=== PATIENT | male | born 1990 ===

== ENCOUNTER 2019-11-01 09:01 | Inpatient (IN) | payer MEDICAID ==
[~2019-11-01] VITALS: Ht 172.7 cm; Wt 108.5 kg
--- NOTE | 2019-11-01 09:24 | NUR ---
0859. 29 YR OLD MALE ARRIVED VIA EMS FROM [facility]. PER REPORT PT WITH KNOWN SEIZURE HX. HAS BEEN OUT OF KEPPRA FOR 5 DAYS, HAS HX OF "HEAVY ETOH" USE. WAS QUESTIONABLE HAVING A SEIZURE AND WAS IN STATUS. WHEN PT QUIT SEIZING, WENT INTO [facility] ARREST. RECEIVED 2 ROUNDS OF EPI IN REPORT PT ASPIRATED. DURING FLIGHT DIFFICULTY WITH VENTILATING PT, RR WOULD INCREASE TO 40'S AND PT SATS WOULD DECREASE. PT WOULD HAVE GUPY BREATHING. PT ONLY PURPOSEFUL MOVEMENT HAS BEEN GUPY BREATHING. PT RECEIVED 70MG OF ROCURONIUM AND 3 DOSES OF 70 MG OF KETAMINE INJECTION MOLDING TECHNICIAN, LAST DOSE AT 0830. PT ARRIVES WITH 8.0 ETT 22 AT LIP. 2 PIV IV, I/0 IN RIGHT TIBIA. NG ?14F IN RIGHT NARE. 2ND LITER OF NS INFUSING. DR PACK AT BEDSIDE. PT PLACED ON MONITORS, VENTILATOR AC 16 TV 550 PEEP 8 100% FIO2. Addendum: 11/01/19 at 1043 by OMAR PT RECEIVED AT [facility], KEPPRA 1000MG, ZOSYN, SOLUMEDROL, 10-12 ROUNDS OF ALBUTEROL. PER PTS MOTHER SEIZURE BEGAN APPROX 0200.
[2019-11-01] MEDS ORDERED: PROPOFOL 100 ML IV ONE (09:26)
--- NOTE | 2019-11-01 09:27 | NUR ---
DR PACK SPOKE WITH DR ABACRA
[2019-11-01] MEDS ORDERED: PANTOPRAZOLE 40 MG IV IVPush SCH (09:30)
[2019-11-01] MEDS ORDERED: PROPOFOL 100 ML IV PRN ×3 (09:30→20:30)
[2019-11-01] MEDS ORDERED: LEVETIRACETAM 100 MG/ML, 5ML IV ONE (09:30)
[2019-11-01] MEDS ORDERED: PLEASE ENTER HEIGHT AND WEIGHT MC SCH (09:30)
[2019-11-01] MEDS ORDERED: PANTOPRAZOLE 40 MG IV ONE ×2 (09:42→10:28)
[2019-11-01] MEDS ORDERED: LEVE100020 PO (09:58)
[2019-11-01] MEDS ORDERED: SODIUM CHLORIDE 0.9% 1,000 ML IV ONE ×2 (10:00)
--- NOTE | 2019-11-01 10:03 | NUR ---
DENNIS RT AT BEDSIDE, VENT SETTINGS CHANGED TO AC 14. PER DR PACK, HOLD POTASSIUM REPLACEMENT UNTIL AFTER POTASSIUM RESULTED. PER REPORT PT HAD K LEVEL OF 2.0, MEDICATION WAS LEFT AT [facility] AND NOT REPLACED. . PT ST PER MONITOR, PTS MOTHER JULIO CESAR AT BEDSIDE. QUESTIONS ANSWERED, UPDATED ON POC.
[2019-11-01 10:05] LABS: ALANINE AMINOTRANSFERASE 22 U/L (12-78); ALBUMIN 0.9 g/dL (3.4-5.0); ANION GAP 16 mmol/L (5-15); CHLORIDE 78 mmol/L (98-107); CREATININE 0.73 mg/dL (0.7-1.3)
[2019-11-01 10:07] LABS: ALKALINE PHOSPHATASE 361 U/L (45-117); BILIRUBIN,TOTAL 7.7 mg/dL (0.2-1.0); TOTAL PROTEIN 5.2 g/dL (6.4-8.2)
[2019-11-01 10:08] LABS: CALCIUM 5.9 mg/dL (8.5-10.1)
[2019-11-01 10:09] LABS: MEAN CORPUSCULAR HEMOGLOBIN 33.7 pg (27.5-34.5); MEAN CORPUSCULAR HGB CONC 33.7 g/dL (33.2-36.2); MEAN CORPUSCULAR VOLUME 100.1 fL (81-97); MEAN PLATELET VOLUME 7.9 fL (7.4-10.4); PLATELET COUNT 155 x10^3/uL (130-400); RED BLOOD COUNT 2.26 x10^6/uL (4.38-5.82); RED CELL DISTRIBUTION WIDTH 18.5 % (9.4-14.8)
[2019-11-01] MEDS ORDERED: PANTOPRAZOLE 80 MG in SODIUM CHLORIDE 0.9% 100 ML IV SCH (10:14)
[2019-11-01] MEDS ORDERED: OCTREOTIDE 500 MCG in SODIUM CHLORIDE 0.9% 249 ML IV PRN (10:14)
--- NOTE | 2019-11-01 10:14 | NUR ---
DR PACK AT BEDSIDE. NG CONTENTS CHECKED FOR BLOOD, PER MD, POSITIVE. WAS DISCUSSED WITH DR PACK, BLEEDING CONTRINDICATED FOR HYPOTHERMIA PROTOCOL. 2ND LITER OF NS THAT WAS INFUSING UPON PT ARRIVAL, COMPLETED AT 0950. NS AT 250MLS INFUSING. MEDICATIONS REQUESTED FROM PHARMACY.
--- NOTE | 2019-11-01 10:18 | NUR ---
DR SALES AT BEDSIDE TO CHANTELL PT
[2019-11-01 10:26] LABS: MD YES
[2019-11-01 10:29] LABS: BAND#(MANUAL) 2.98 x10^3/uL; BANDS%(MANUAL) 48 % (0-7); LYMPH#(MANUAL) 0.37 x10^3/uL (1-3.4); LYMPHS% (MANUAL) 6 % (22-44); METAMYELOCYTES# (MANUAL) 0.25 x10^3/uL (0-0); METAMYELOCYTES% (MANUAL) 4 % (0-1); MONOS#(MANUAL) 0.37 x10^3/uL (0.3-2.7); MONOS% (MANUAL) 6 % (2-9); SEG#(MANUAL) 2.23 x10^3/uL (1.8-6.8); SEGS% (MANUAL) 36 % (42-75)
[2019-11-01 10:30] LABS: ANISOCYTOSIS 1+; HYPOCHROMIA 1+; SICKLE CELLS 1+; STOMATOCYTES 1+
[2019-11-01] MEDS ORDERED: PANTOPRAZOLE 40 MG IV IVPush ONE (10:30)
[2019-11-01] MEDS ORDERED: POTASSIUM CHLORIDE 40 MEQ in SODIUM CHLORIDE 0.9% 500 ML IV ONE (10:30)
[2019-11-01] MEDS ORDERED: LEVETIRACETAM 500 MG in SODIUM CHLORIDE 0.9% 100 ML IV ONE (10:30)
[2019-11-01] MEDS ORDERED: OCTREOTIDE 100MCG/ML, 1ML (0.1MG/ML) IV ONE (10:30)
[2019-11-01 10:31] LABS: <PLATELET ESTIMATE> ADEQUATE; <PLT MORPHOLOGY> NORMAL PLT MORPH; PMNS WITH VACUOLES 1+
--- NOTE | 2019-11-01 10:45 | NUR ---
U/S TECH AT BEDSIDE.
[2019-11-01] MEDS: LEVETIRACETAM 1,000 MG in SODIUM CHLORIDE 0.9% 100 ML IV SCH ×2 (10:51→21:55)
--- NOTE | 2019-11-01 10:52 | NUR ---
KEPPRA NOT GIVEN, WAS DISCUSSED WITH DR PACK, PT RECEIVED KEPPRA 1000MG IN [facility]. NS 250MLS/HR, PROPOFOL AT 10 MCG/KG/MIN, NS WITH 40 KCL AT 130MLS/HR, OCTREOTIDE AND PROTONIX TO BE STARTED. NO CHANGE IN PT CONDITION NOTED. PT RECEIVED ZOSYN MODEL HOME SALES GREETER.
[2019-11-01 10:54] LABS: INTERNATIONAL NORMALIZED RATIO 1.61 (0.93-1.1); PROTHROMBIN TIME 16.6 Seconds (9.6-11.5)
[2019-11-01] MEDS ORDERED: VANCOMYCIN PER PHARMACY MC PRN (11:00)
--- NOTE | 2019-11-01 11:08 | NUR ---
REPORT CALLED TO MYRON AHUJA RN DISCUSSED, PT TO GO TO CT THEN BE TRANSPORTED TO ROOM. Addendum: 11/01/19 at 1217 by OMAR PT HAS HAD APPROX 150MLS BROWN FLUID FROM NG TUBE . PT HAD 450MLS URINE IN [place] BAG UPON RMOVAL OF ONE PLACE AT [facility]
[2019-11-01] MEDS ORDERED: OCTREOTIDE 100MCG/ML, 1ML (0.1MG/ML) ONE (11:12)
--- NOTE | 2019-11-01 11:14 | NUR ---
DR PACK SPOKE WITH DR ROMERO
[2019-11-01 11:30] LABS: TROPONIN I < 0.015 ng/mL (0.000-0.045)
[2019-11-01] MEDS ORDERED: OMNIPAQUE 350 MG/ML, 100ML BOTTLE ONE (11:35)
[2019-11-01] MEDS ORDERED: THIAMINE 200 MG in SODIUM CHLORIDE 0.9% 50 ML IV ONE (12:42)
[2019-11-01] MEDS ORDERED: PHARMACOKINETIC MONITORING MC PRN (13:00)
[2019-11-01] MEDS ORDERED: MAGNESIUM SULFATE PMX 2GM/50ML 50 ML IV ONE (13:30)
[2019-11-01] MEDS ORDERED: MIDAZOLAM 1 MG/ML, 2ML ONE (13:48)
[2019-11-01] MEDS ORDERED: MIDAZOLAM 1 MG/ML, 5ML IVPush ONE (14:00)
[2019-11-01] MEDS ORDERED: CALCIUM CHLORIDE 13.6 MEQ in SODIUM CHLORIDE 0.9% 50 ML IV ONE (14:00)
[2019-11-01] MEDS ORDERED: LIDOCAINE-MPF 1%, 2ML ONE (14:06)
[2019-11-01] MEDS ORDERED: NOREPINEPHRINE 1 MG/ML, 4ML ONE (14:30)
[2019-11-01] MEDS ORDERED: POTASSIUM CHLORIDE 20 MEQ, MAGNESIUM SULFATE 1 GM, FOLIC ACID 1 MG, THIAMINE 200 MG, MV... IV SCH (14:30)
[2019-11-01] MEDS ORDERED: VASOPRESSIN 100 UNIT in SODIUM CHLORIDE 0.9% 495 ML IV PRN (14:37)
[2019-11-01] MEDS ORDERED: NOREPINEPHRINE 4 MG in SODIUM CHLORIDE 0.9% 246 ML IV PRN (14:37)
[2019-11-01] MEDS ORDERED: LACTULOSE 20 GM/30 ML UDC NG PRN (15:00)
[2019-11-01] MEDS ORDERED: LIDOCAINE-MPF 1%, 2ML ENDO PRN (15:00)
[2019-11-01] MEDS ORDERED: BISACODYL 10 MG SUPP PR PRN (15:00)
[2019-11-01] MEDS ORDERED: PHARMACY MAY ADJ FOR RENAL FX MC SCH (15:00)
[2019-11-01] MEDS ORDERED: CALCIUM CHLORIDE 10%, 10ML SYR IVPush ONE (15:00)
[2019-11-01] MEDS ORDERED: DEXTROSE 50%, 50ML SYRINGE IVPush PRN ×2 (15:00)
[2019-11-01] MEDS ORDERED: SENNA/DOCUSATE TABLET NG PRN (15:00)
[2019-11-01] MEDS ORDERED: CALCIUM CHLORIDE 13.6 MEQ in SODIUM CHLORIDE 0.9% 100 ML IV ONE (15:00)
[2019-11-01] MEDS ORDERED: SENNA 176 MG/5 ML ORAL SOL NG PRN (15:00)
[2019-11-01] MEDS ORDERED: DEXTROSE 4 GM TAB.CHEW PO PRN ×2 (15:00)
[2019-11-01] MEDS ORDERED: GLUCAGON 1 MG IM PRN ×2 (15:00)
[2019-11-01] MEDS ORDERED: LORazepam 2 MG/ML, 1ML ONE (15:26)
[2019-11-01 15:31] LABS: TROPONIN I < 0.015 ng/mL (0.000-0.045)
[2019-11-01 15:37] LABS: TRIGLYCERIDES 135 mg/dL (50-200)
[2019-11-01] MEDS ORDERED: FAMOTIDINE 20 MG/2 ML IV SCH (16:00)
[2019-11-01] MEDS ORDERED: LORazepam 2 MG/ML, 1ML IVPush ONE (16:00)
[2019-11-01] MEDS: INSULIN LISPRO 100 UNITS/ML, PEN SQ-INSULIN SCH ×2 (16:00→21:00)
[2019-11-01] MEDS: VECURONIUM 50 MG in SODIUM CHLORIDE 0.9% 250 ML IV PRN (16:38)
[2019-11-01] MEDS: FENTANYL PF 2,500 MCG in SODIUM CHLORIDE 0.9% 200 ML IV PRN (16:39)
[2019-11-01] MEDS: VANCOMYCIN 1,400 MG in SODIUM CHLORIDE 0.9% 250 ML IV SCH (16:41)
[2019-11-01] MEDS: AZITHROMYCIN 500 MG in SODIUM CHLORIDE 0.9% 250 ML IV SCH (16:41)
[2019-11-01] MEDS: PIPERACILLIN/TAZO/PMX 3.375GM 50 ML IV SCH ×2 (17:34→23:17)
[2019-11-01 18:16] LABS: RAPID INFLUENZA A Negative (Negative); RAPID INFLUENZA B Negative (Negative)
[2019-11-01] MEDS: ALBUTEROL/IPRATROPIUM 2.5MG/0.5MG, 3 ML INLINE SCH ×3 (18:30→22:30)
[2019-11-01] MEDS ORDERED: SODIUM PHOSPHATE 20 MMOL in SODIUM CHLORIDE 0.9% 250 ML IV ONE (18:40)
[2019-11-01] MEDS: KSCALE TO 4.5 IV SCH (19:00)
[2019-11-01] MEDS ORDERED: FENTANYL PF 2,500 MCG in SODIUM CHLORIDE 0.9% 200 ML IV PRN (20:30)
[2019-11-01] MEDS ORDERED: SODIUM PHOSPHATE 20 MMOL in SODIUM CHLORIDE 0.9% 250 ML IV PRN (20:30)
[2019-11-01] MEDS ORDERED: REGULAR INSULIN 62.5 UNITS in SODIUM CHLORIDE 0.9% 249.375 ML SQ-INSULIN PRN (20:30)
[2019-11-01] MEDS ORDERED: INSULIN REGULAR 100 UNITS/ML, 3ML VIAL IVPush ONE (20:30)
[2019-11-01] MEDS ORDERED: POTASSIUM CHLORIDE 40 MEQ in SODIUM CHLORIDE 0.9% 100 ML IV ONE (20:30)
[2019-11-01] MEDS ORDERED: VECURONIUM 10 MG IVPush PRN (20:30)
[2019-11-01] MEDS ORDERED: KSCALE TO 4.0 IV SCH (20:30)
[2019-11-01] MEDS: OCTREOTIDE 500 MCG in SODIUM CHLORIDE 0.9% 249 ML IV SCH (20:38)
[2019-11-01] MEDS: MAGNESIUM SULFATE 1 GM in SODIUM CHLORIDE 0.9% 50 ML IV PRN (20:38)
[2019-11-01] MEDS: PANTOPRAZOLE 80 MG in SODIUM CHLORIDE 0.9% 100 ML IV SCH (20:43)
[2019-11-01] MEDS ORDERED: SODIUM CHLORIDE FLUSH 10ML SYR IVF SCH (21:00)
[2019-11-01] MEDS: BUSPIRONE 10 MG TABLET NG SCH (21:53)
[2019-11-01] MEDS: SODIUM CHLORIDE FLUSH 10ML SYR IVF SCH (21:56)
[2019-11-01] MEDS: ARTIFICIAL TEARS OINT 3.5 GM EACHEYE SCH (23:17)
[2019-11-02 00:06] LABS: TROPONIN I < 0.015 ng/mL (0.000-0.045)
[2019-11-02] MEDS: PROPOFOL 100 ML IV PRN (00:40)
[2019-11-02] MEDS: NOREPINEPHRINE 4 MG in SODIUM CHLORIDE 0.9% 246 ML IV PRN ×3 (00:43→17:29)
[2019-11-02] MEDS: KSCALE TO 4.5 IV SCH ×4 (01:00→19:00)
[2019-11-02] MEDS: ALBUTEROL/IPRATROPIUM 2.5MG/0.5MG, 3 ML INLINE SCH ×6 (02:45→22:07)
[2019-11-02] MEDS ORDERED: POTASSIUM CHLORIDE 40 MEQ in SODIUM CHLORIDE 0.9% 100 ML IV ONE (03:00)
[2019-11-02] MEDS: BUSPIRONE 10 MG TABLET NG SCH ×3 (05:31→20:56)
[2019-11-02] MEDS: PIPERACILLIN/TAZO/PMX 3.375GM 50 ML IV SCH ×4 (05:31→23:03)
[2019-11-02 05:42] LABS: MEAN CORPUSCULAR HEMOGLOBIN 33.7 pg (27.5-34.5); MEAN CORPUSCULAR HGB CONC 33.2 g/dL (33.2-36.2); MEAN CORPUSCULAR VOLUME 101.4 fL (81-97); MEAN PLATELET VOLUME 9.1 fL (7.4-10.4); PLATELET COUNT 131 x10^3/uL (130-400); RED BLOOD COUNT 2.26 x10^6/uL (4.38-5.82); RED CELL DISTRIBUTION WIDTH 19.1 % (9.4-14.8)
[2019-11-02 05:49] LABS: ALBUMIN 0.9 g/dL (3.4-5.0); ANION GAP 6 mmol/L (5-15); CALCIUM 6.9 mg/dL (8.5-10.1); CHLORIDE 97 mmol/L (98-107)
[2019-11-02 05:59] LABS: MD YES
[2019-11-02 06:01] LABS: ANISOCYTOSIS 1+; BAND#(MANUAL) 12.34 x10^3/uL; BANDS%(MANUAL) 43 % (0-7); HYPOCHROMIA 1+; LYMPH#(MANUAL) 0.86 x10^3/uL (1-3.4); LYMPHS% (MANUAL) 3 % (22-44); METAMYELOCYTES# (MANUAL) 0.57 x10^3/uL (0-0); METAMYELOCYTES% (MANUAL) 2 % (0-1); MONOS#(MANUAL) 0.86 x10^3/uL (0.3-2.7); MONOS% (MANUAL) 3 % (2-9); NRBC % (MANUAL) 1 % (0-1); SEG#(MANUAL) 14.06 x10^3/uL (1.8-6.8); SEGS% (MANUAL) 49 % (42-75)
[2019-11-02 06:03] LABS: PMNS WITH VACUOLES 1+
[2019-11-02 06:04] LABS: <PLATELET ESTIMATE> ADEQUATE; <PLT MORPHOLOGY> NORMAL PLT MORPH
[2019-11-02] MEDS: VANCOMYCIN 1,400 MG in SODIUM CHLORIDE 0.9% 250 ML IV SCH ×2 (06:11→18:08)
[2019-11-02 06:18] LABS: ALANINE AMINOTRANSFERASE 36 U/L (12-78); ALKALINE PHOSPHATASE 271 U/L (45-117); BILIRUBIN,TOTAL 5.8 mg/dL (0.2-1.0); CREATININE 0.37 mg/dL (0.7-1.3); TOTAL PROTEIN 5.1 g/dL (6.4-8.2)
[2019-11-02] MEDS: PANTOPRAZOLE 80 MG in SODIUM CHLORIDE 0.9% 100 ML IV SCH (06:29)
[2019-11-02] MEDS: OCTREOTIDE 500 MCG in SODIUM CHLORIDE 0.9% 249 ML IV SCH (06:44)
[2019-11-02] MEDS: INSULIN LISPRO 100 UNITS/ML, PEN SQ-INSULIN SCH (07:00)
[2019-11-02] MEDS: ARTIFICIAL TEARS OINT 3.5 GM EACHEYE SCH ×3 (08:51→23:03)
[2019-11-02] MEDS: PANTOPRAZOLE 40 MG IV IVPush SCH ×2 (09:30→21:54)
[2019-11-02] MEDS ORDERED: POTASSIUM CHLORIDE 30 MEQ in SODIUM CHLORIDE 0.9% 100 ML IV ONE ×3 (10:00→13:30)
[2019-11-02] MEDS ORDERED: CALCIUM CHLORIDE 13.6 MEQ in SODIUM CHLORIDE 0.9% 100 ML IV ONE (10:00)
[2019-11-02] MEDS: SODIUM CHLORIDE FLUSH 10ML SYR IVF SCH ×2 (10:21→21:54)
[2019-11-02] MEDS: LEVETIRACETAM 1,000 MG in SODIUM CHLORIDE 0.9% 100 ML IV SCH ×2 (11:33→20:56)
[2019-11-02] MEDS: FOLIC ACID 1 MG, THIAMINE 200 MG, MVI ADULT 10 ML in DEXTROSE 5% 1,000 ML IV SCH (13:15)
[2019-11-02 14:29] VITALS: BP 107/63
[2019-11-02 14:44] VITALS: BP 112/69
[2019-11-02 14:57] VITALS: BP 109/67
[2019-11-02 14:58] VITALS: BP 109/66
[2019-11-02] MEDS: AZITHROMYCIN 500 MG in SODIUM CHLORIDE 0.9% 250 ML IV SCH (15:34)
[2019-11-02 16:00] VITALS: BP 115/79
[2019-11-02 17:00] VITALS: BP 106/75
[2019-11-02] MEDS: VECURONIUM 50 MG in SODIUM CHLORIDE 0.9% 250 ML IV PRN (17:28)
[2019-11-02] MEDS: MAGNESIUM SULFATE 1 GM in SODIUM CHLORIDE 0.9% 50 ML IV PRN (17:29)
[2019-11-02] MEDS ORDERED: POTASSIUM CHLORIDE PMX 100 ML IV ONE ×2 (17:30→21:30)
[2019-11-03] MEDS: KSCALE TO 4.5 IV SCH ×3 (01:00→15:41)
[2019-11-03] MEDS: NOREPINEPHRINE 4 MG in SODIUM CHLORIDE 0.9% 246 ML IV PRN ×7 (01:04→21:36)
[2019-11-03] MEDS: ALBUTEROL/IPRATROPIUM 2.5MG/0.5MG, 3 ML INLINE SCH ×6 (02:04→22:31)
[2019-11-03] MEDS: PROPOFOL 100 ML IV PRN ×3 (03:47→20:52)
[2019-11-03 05:13] LABS: MEAN CORPUSCULAR HEMOGLOBIN 32.5 pg (27.5-34.5); MEAN CORPUSCULAR HGB CONC 32.6 g/dL (33.2-36.2); MEAN CORPUSCULAR VOLUME 99.7 fL (81-97); MEAN PLATELET VOLUME 9.1 fL (7.4-10.4); PLATELET COUNT 139 x10^3/uL (130-400); RED BLOOD COUNT 2.86 x10^6/uL (4.38-5.82)
[2019-11-03] MEDS: PIPERACILLIN/TAZO/PMX 3.375GM 50 ML IV SCH ×4 (05:13→23:11)
[2019-11-03] MEDS: BUSPIRONE 10 MG TABLET NG SCH ×3 (05:13→20:58)
[2019-11-03 05:17] LABS: ANION GAP 5 mmol/L (5-15); CALCIUM 7.7 mg/dL (8.5-10.1); CHLORIDE 102 mmol/L (98-107); CREATININE 0.34 mg/dL (0.7-1.3)
[2019-11-03 05:22] LABS: CREATINE KINASE, TOTAL 26 U/L (39-308); VANCOMYCIN,TROUGH 18.3 mcg/mL (5.0-10.0)
[2019-11-03 05:39] LABS: MD YES
[2019-11-03 05:58] LABS: ANISOCYTOSIS 1+; BAND#(MANUAL) 7.18 x10^3/uL; BANDS%(MANUAL) 26 % (0-7); HYPOCHROMIA 1+; LYMPH#(MANUAL) 2.21 x10^3/uL (1-3.4); LYMPHS% (MANUAL) 8 % (22-44); MONOS#(MANUAL) 0.83 x10^3/uL (0.3-2.7); MONOS% (MANUAL) 3 % (2-9); MYELOCYTES# (MANUAL) 0.83 x10^3/uL (0-0); MYELOCYTES% (MANUAL) 3 % (0-0); NRBC % (MANUAL) 2 % (0-1); SEG#(MANUAL) 16.56 x10^3/uL (1.8-6.8); SEGS% (MANUAL) 60 % (42-75)
[2019-11-03 06:00] LABS: <PLATELET ESTIMATE> ADEQUATE; <PLT MORPHOLOGY> NORMAL PLT MORPH; POLYCHROMASIA 1+
[2019-11-03] MEDS ORDERED: POTASSIUM CHLORIDE PMX 100 ML IV ONE (06:00)
[2019-11-03] MEDS: VANCOMYCIN 1,400 MG in SODIUM CHLORIDE 0.9% 250 ML IV SCH (06:12)
[2019-11-03] MEDS ORDERED: LORazepam 2 MG/ML, 1ML ONE (06:46)
[2019-11-03] MEDS ORDERED: ALBUMIN HUMAN 25% 50 ML IV STA (06:54)
[2019-11-03] MEDS ORDERED: LORazepam 2 MG/ML, 1ML IVPush ONE (07:00)
[2019-11-03] MEDS: LEVETIRACETAM 1,000 MG in SODIUM CHLORIDE 0.9% 100 ML IV SCH (07:27)
[2019-11-03] MEDS: ARTIFICIAL TEARS OINT 3.5 GM EACHEYE SCH ×3 (07:35→23:11)
[2019-11-03] MEDS ORDERED: LORazepam 2 MG/ML, 1ML IVPush PRN (08:00)
[2019-11-03] MEDS: SODIUM CHLORIDE FLUSH 10ML SYR IVF SCH ×2 (09:30→20:58)
[2019-11-03] MEDS: FOLIC ACID 1 MG, THIAMINE 200 MG, MVI ADULT 10 ML in DEXTROSE 5% 1,000 ML IV SCH (09:30)
[2019-11-03] MEDS: PANTOPRAZOLE 40 MG IV IVPush SCH ×2 (09:35→20:58)
[2019-11-03] MEDS ORDERED: LEVETIRACETAM 500 MG in SODIUM CHLORIDE 0.9% 100 ML IV ONE (11:00)
[2019-11-03] MEDS ORDERED: PHENYLEPHRINE 10 MG in SODIUM CHLORIDE 0.9% 249 ML IV PRN (11:30)
[2019-11-03] MEDS: AZITHROMYCIN 500 MG in SODIUM CHLORIDE 0.9% 250 ML IV SCH (15:41)
[2019-11-03] MEDS: LEVETIRACETAM 1,500 MG in SODIUM CHLORIDE 0.9% 100 ML IV SCH (17:04)
[2019-11-03] MEDS: PHENYLEPHRINE 20 MG in SODIUM CHLORIDE 0.9% 248 ML IV PRN (20:53)
[2019-11-04] MEDS: NOREPINEPHRINE 4 MG in SODIUM CHLORIDE 0.9% 246 ML IV PRN ×8 (00:31→23:24)
[2019-11-04] MEDS: PHENYLEPHRINE 20 MG in SODIUM CHLORIDE 0.9% 248 ML IV PRN ×4 (00:32→12:11)
[2019-11-04] MEDS: ALBUTEROL/IPRATROPIUM 2.5MG/0.5MG, 3 ML INLINE SCH ×6 (03:00→23:00)
[2019-11-04] MEDS: PROPOFOL 100 ML IV PRN ×3 (04:34→19:07)
[2019-11-04] MEDS: BUSPIRONE 10 MG TABLET NG SCH ×3 (04:40→19:07)
[2019-11-04] MEDS: PIPERACILLIN/TAZO/PMX 3.375GM 50 ML IV SCH ×4 (04:40→23:23)
[2019-11-04 05:05] LABS: ALBUMIN 1.1 g/dL (3.4-5.0); ANION GAP 5 mmol/L (5-15); CHLORIDE 105 mmol/L (98-107)
[2019-11-04 05:08] LABS: BILIRUBIN,TOTAL 8.1 mg/dL (0.2-1.0); CREATININE 0.43 mg/dL (0.7-1.3)
[2019-11-04 05:09] LABS: ALANINE AMINOTRANSFERASE 54 U/L (12-78); ALKALINE PHOSPHATASE 330 U/L (45-117); TOTAL PROTEIN 4.6 g/dL (6.4-8.2)
[2019-11-04 05:10] LABS: TRIGLYCERIDES 172 mg/dL (50-200)
[2019-11-04 05:55] LABS: MEAN CORPUSCULAR HEMOGLOBIN 32.6 pg (27.5-34.5); MEAN CORPUSCULAR HGB CONC 32.8 g/dL (33.2-36.2); MEAN CORPUSCULAR VOLUME 99.3 fL (81-97); MEAN PLATELET VOLUME 8.8 fL (7.4-10.4); PLATELET COUNT 94 x10^3/uL (130-400); RED BLOOD COUNT 2.26 x10^6/uL (4.38-5.82); RED CELL DISTRIBUTION WIDTH 20.8 % (9.4-14.8)
[2019-11-04 05:56] LABS: MD YES
[2019-11-04 05:57] LABS: BAND#(MANUAL) 3.95 x10^3/uL; BANDS%(MANUAL) 10 % (0-7); METAMYELOCYTES# (MANUAL) 1.19 x10^3/uL (0-0); METAMYELOCYTES% (MANUAL) 3 % (0-1); NRBC % (MANUAL) 3 % (0-1)
[2019-11-04 05:58] LABS: ANISOCYTOSIS 1+; HYPOCHROMIA 1+; LYMPH#(MANUAL) 4.74 x10^3/uL (1-3.4); LYMPHS% (MANUAL) 12 % (22-44); MONOS#(MANUAL) 1.58 x10^3/uL (0.3-2.7); MONOS% (MANUAL) 4 % (2-9); MYELOCYTES# (MANUAL) 2.37 x10^3/uL (0-0); MYELOCYTES% (MANUAL) 6 % (0-0); POLYCHROMASIA 1+; SEG#(MANUAL) 25.68 x10^3/uL (1.8-6.8); SEGS% (MANUAL) 65 % (42-75)
[2019-11-04 05:59] LABS: <PLATELET ESTIMATE> DECREASED; <PLT MORPHOLOGY> NORMAL PLT MORPH
[2019-11-04] MEDS: LEVETIRACETAM 1,500 MG in SODIUM CHLORIDE 0.9% 100 ML IV SCH ×2 (06:27→18:16)
[2019-11-04] MEDS ORDERED: VANCOMYCIN PER PHARMACY MC PRN ×2 (06:30→10:00)
[2019-11-04] MEDS: PANTOPRAZOLE 40 MG IV IVPush SCH ×2 (07:56→21:05)
[2019-11-04] MEDS: ARTIFICIAL TEARS OINT 3.5 GM EACHEYE SCH ×2 (07:56→15:25)
[2019-11-04] MEDS: SODIUM CHLORIDE FLUSH 10ML SYR IVF SCH ×2 (07:57→21:05)
[2019-11-04] MEDS ORDERED: ENOXAPARIN 40 MG/0.4 ML SQ SCH (08:30)
[2019-11-04] MEDS: ENOXAPARIN 40 MG/0.4 ML SQ SCH (08:30)
[2019-11-04] MEDS ORDERED: MAGNESIUM SULFATE PMX 2GM/50ML 50 ML IV ONE (08:30)
[2019-11-04] MEDS ORDERED: POTASSIUM PHOSPHATE 44 MEQ in SODIUM CHLORIDE 0.9% 500 ML IV ONE (08:30)
[2019-11-04] MEDS ORDERED: CALCIUM CHLORIDE 13.6 MEQ in SODIUM CHLORIDE 0.9% 100 ML IV ONE (08:30)
[2019-11-04] MEDS ORDERED: POTASSIUM CHLORIDE 20 MEQ PACKET PO SCH (08:30)
[2019-11-04] MEDS ORDERED: POTASSIUM CHLORIDE 20 MEQ PACKET PO ONE (08:30)
[2019-11-04 09:23] LABS: CULTURE INDICATED? YES; MICROSCOPIC INDICATED
[2019-11-04] MEDS ORDERED: PHARMACOKINETIC MONITORING MC PRN (10:00)
[2019-11-04] MEDS: VANCOMYCIN 1,400 MG in SODIUM CHLORIDE 0.9% 250 ML IV SCH ×2 (10:03→21:06)
[2019-11-04 10:12] VITALS: BP 117/54
[2019-11-04] MEDS: FENTANYL PF 2,500 MCG in SODIUM CHLORIDE 0.9% 200 ML IV PRN (12:20)
[2019-11-04 13:30] VITALS: BP 131/67
[2019-11-04] MEDS: AZITHROMYCIN 500 MG in SODIUM CHLORIDE 0.9% 250 ML IV SCH (15:26)
[2019-11-05] MEDS: ARTIFICIAL TEARS OINT 3.5 GM EACHEYE SCH ×4 (00:06→23:27)
[2019-11-05] MEDS: ALBUTEROL/IPRATROPIUM 2.5MG/0.5MG, 3 ML INLINE SCH ×6 (02:41→23:00)
[2019-11-05] MEDS: NOREPINEPHRINE 4 MG in SODIUM CHLORIDE 0.9% 246 ML IV PRN ×5 (02:46→18:41)
[2019-11-05] MEDS: BUSPIRONE 10 MG TABLET NG SCH ×3 (04:35→21:09)
[2019-11-05] MEDS: PIPERACILLIN/TAZO/PMX 3.375GM 50 ML IV SCH ×4 (04:35→23:23)
[2019-11-05] MEDS: PROPOFOL 100 ML IV PRN ×2 (04:40→23:47)
[2019-11-05 04:42] LABS: ANION GAP 6 mmol/L (5-15); CALCIUM 7.1 mg/dL (8.5-10.1); CHLORIDE 109 mmol/L (98-107); CREATININE 0.41 mg/dL (0.7-1.3)
[2019-11-05 04:55] LABS: MEAN CORPUSCULAR HEMOGLOBIN 31.3 pg (27.5-34.5); MEAN CORPUSCULAR HGB CONC 32.2 g/dL (33.2-36.2); MEAN CORPUSCULAR VOLUME 97.1 fL (81-97); RED CELL DISTRIBUTION WIDTH 20.4 % (9.4-14.8)
[2019-11-05 05:40] LABS: MD YES
[2019-11-05 05:41] LABS: MEAN PLATELET VOLUME 8.9 fL (7.4-10.4); PLATELET COUNT 70 x10^3/uL (130-400)
[2019-11-05 05:42] LABS: METAMYELOCYTES# (MANUAL) 2.09 x10^3/uL (0-0); METAMYELOCYTES% (MANUAL) 6 % (0-1); MYELOCYTES# (MANUAL) 2.44 x10^3/uL (0-0); MYELOCYTES% (MANUAL) 7 % (0-0); PROGRANULOCYTES# (MANUAL) 0.35 x10^3/uL (0-0); PROGRANULOCYTES% (MANUAL) 1 % (0-0)
[2019-11-05 05:43] LABS: BAND#(MANUAL) 4.87 x10^3/uL; BANDS%(MANUAL) 14 % (0-7); LYMPH#(MANUAL) 4.52 x10^3/uL (1-3.4); LYMPHS% (MANUAL) 13 % (22-44); MONOS#(MANUAL) 1.04 x10^3/uL (0.3-2.7); MONOS% (MANUAL) 3 % (2-9); NRBC % (MANUAL) 1 % (0-1); SEG#(MANUAL) 19.49 x10^3/uL (1.8-6.8); SEGS% (MANUAL) 56 % (42-75)
[2019-11-05 05:44] LABS: ANISOCYTOSIS 1+; HYPOCHROMIA 1+; POLYCHROMASIA 1+
[2019-11-05 05:45] LABS: <PLATELET ESTIMATE> DECREASED; <PLT MORPHOLOGY> NORMAL PLT MORPH
[2019-11-05] MEDS: LEVETIRACETAM 1,500 MG in SODIUM CHLORIDE 0.9% 100 ML IV SCH ×2 (05:46→17:56)
[2019-11-05] MEDS ORDERED: POTASSIUM CHLORIDE 20 MEQ PACKET PO ONE (08:30)
[2019-11-05] MEDS: ENOXAPARIN 40 MG/0.4 ML SQ SCH (08:30)
[2019-11-05] MEDS ORDERED: CALCIUM CHLORIDE 13.6 MEQ in SODIUM CHLORIDE 0.9% 100 ML IV ONE (08:30)
[2019-11-05] MEDS: CALCIUM CHLORIDE 13.6 MEQ in DEXTROSE 5% 100 ML IV PRN ×3 (08:37→08:59)
[2019-11-05] MEDS: SODIUM CHLORIDE FLUSH 10ML SYR IVF SCH ×2 (08:50→21:09)
[2019-11-05] MEDS: PANTOPRAZOLE 40 MG IV IVPush SCH ×2 (08:50→21:09)
[2019-11-05] MEDS ORDERED: LACTULOSE 20 GM/30 ML UDC NG PRN (09:30)
[2019-11-05] MEDS ORDERED: POTASSIUM PHOSPHATE 22 MEQ in SODIUM CHLORIDE 0.9% 250 ML IV ONE (09:30)
[2019-11-05] MEDS ORDERED: BISACODYL 10 MG SUPP PR PRN (09:30)
[2019-11-05] MEDS: DOCUSATE 50 MG/5 ML, 10ML UDC NG SCH (11:13)
[2019-11-05 12:31] LABS: HIT RESULT NEGATIVE (NEGATIVE)
[2019-11-05] MEDS: NOREPINEPHRINE 8 MG in SODIUM CHLORIDE 0.9% 242 ML IV PRN (21:00)
[2019-11-05] MEDS: SENNOSIDES 8.8 MG/5 ML ORAL SOL NG SCH (21:09)
[2019-11-05] MEDS ORDERED: VECURONIUM 10 MG IVPush ONE (22:30)
[2019-11-05] MEDS ORDERED: ALBUMIN HUMAN 25% 100 ML IV ONE (22:30)
[2019-11-05] MEDS ORDERED: FUROSEMIDE 20 MG/2 ML IV ONE (22:30)
[2019-11-05] MEDS: PHENYLEPHRINE 20 MG in SODIUM CHLORIDE 0.9% 248 ML IV PRN (23:15)
[2019-11-06] MEDS: VASOPRESSIN 100 UNIT in SODIUM CHLORIDE 0.9% 495 ML IV PRN (00:32)
[2019-11-06] MEDS: NOREPINEPHRINE 8 MG in SODIUM CHLORIDE 0.9% 242 ML IV PRN (01:29)
[2019-11-06] MEDS: ALBUTEROL/IPRATROPIUM 2.5MG/0.5MG, 3 ML INLINE SCH ×6 (02:21→22:04)
[2019-11-06 04:36] LABS: ANION GAP 8 mmol/L (5-15); CALCIUM 7.8 mg/dL (8.5-10.1); CHLORIDE 110 mmol/L (98-107); CREATININE 0.53 mg/dL (0.7-1.3)
[2019-11-06] MEDS: BUSPIRONE 10 MG TABLET NG SCH ×3 (04:47→20:37)
[2019-11-06] MEDS: PIPERACILLIN/TAZO/PMX 3.375GM 50 ML IV SCH ×4 (04:47→22:24)
[2019-11-06 04:57] LABS: MEAN CORPUSCULAR HEMOGLOBIN 32.2 pg (27.5-34.5); MEAN CORPUSCULAR HGB CONC 33.6 g/dL (33.2-36.2); MEAN CORPUSCULAR VOLUME 95.9 fL (81-97); RED BLOOD COUNT 2.59 x10^6/uL (4.38-5.82); RED CELL DISTRIBUTION WIDTH 21.3 % (9.4-14.8)
[2019-11-06] MEDS: ARTIFICIAL TEARS OINT 3.5 GM EACHEYE SCH ×3 (05:39→22:38)
[2019-11-06] MEDS: LEVETIRACETAM 1,500 MG in SODIUM CHLORIDE 0.9% 100 ML IV SCH ×2 (05:39→17:58)
[2019-11-06 05:41] LABS: MD YES
[2019-11-06 05:43] LABS: MEAN PLATELET VOLUME 8.8 fL (7.4-10.4); PLATELET COUNT 69 x10^3/uL (130-400)
[2019-11-06 05:45] LABS: BAND#(MANUAL) 2.45 x10^3/uL; BANDS%(MANUAL) 7 % (0-7); LYMPHS% (MANUAL) 6 % (22-44); METAMYELOCYTES# (MANUAL) 3.15 x10^3/uL (0-0); METAMYELOCYTES% (MANUAL) 9 % (0-1); MONOS% (MANUAL) 4 % (2-9); MYELOCYTES# (MANUAL) 3.85 x10^3/uL (0-0); MYELOCYTES% (MANUAL) 11 % (0-0); NRBC % (MANUAL) 4 % (0-1); PROGRANULOCYTES# (MANUAL) 0.35 x10^3/uL (0-0); PROGRANULOCYTES% (MANUAL) 1 % (0-0); SEGS% (MANUAL) 62 % (42-75)
[2019-11-06 05:46] LABS: <PLATELET ESTIMATE> DECREASED; <PLT MORPHOLOGY> NORMAL PLT MORPH; ANISOCYTOSIS 1+; HYPOCHROMIA 1+; POLYCHROMASIA 1+
[2019-11-06] MEDS: PROPOFOL 100 ML IV PRN ×3 (06:12→22:23)
[2019-11-06] MEDS: ENOXAPARIN 40 MG/0.4 ML SQ SCH (08:30)
[2019-11-06] MEDS ORDERED: POTASSIUM CHLORIDE 20 MEQ PACKET PO ONE (08:30)
[2019-11-06] MEDS: DOCUSATE 50 MG/5 ML, 10ML UDC NG SCH (09:46)
[2019-11-06] MEDS: PANTOPRAZOLE 40 MG IV IVPush SCH ×2 (09:46→20:37)
[2019-11-06] MEDS: NOREPINEPHRINE 16 MG in SODIUM CHLORIDE 0.9% 234 ML IV PRN ×2 (09:46→23:26)
[2019-11-06] MEDS: SODIUM CHLORIDE FLUSH 10ML SYR IVF SCH ×2 (09:46→20:38)
[2019-11-06] MEDS: SENNOSIDES 8.8 MG/5 ML ORAL SOL NG SCH (20:38)
[2019-11-07] MEDS: ALBUTEROL/IPRATROPIUM 2.5MG/0.5MG, 3 ML INLINE SCH ×6 (02:15→23:01)
[2019-11-07] MEDS: PROPOFOL 100 ML IV PRN (04:00)
[2019-11-07] MEDS: PIPERACILLIN/TAZO/PMX 3.375GM 50 ML IV SCH ×4 (04:51→23:09)
[2019-11-07] MEDS: BUSPIRONE 10 MG TABLET NG SCH ×2 (04:51→12:30)
[2019-11-07 05:37] LABS: MEAN CORPUSCULAR HEMOGLOBIN 32.6 pg (27.5-34.5); MEAN CORPUSCULAR HGB CONC 33.5 g/dL (33.2-36.2); MEAN CORPUSCULAR VOLUME 97.4 fL (81-97); PLATELET COUNT 90 x10^3/uL (130-400); RED BLOOD COUNT 2.57 x10^6/uL (4.38-5.82); RED CELL DISTRIBUTION WIDTH 21.4 % (9.4-14.8)
[2019-11-07 05:40] LABS: CALCIUM 7.9 mg/dL (8.5-10.1); CHLORIDE 111 mmol/L (98-107)
[2019-11-07 05:44] LABS: ANION GAP 8 mmol/L (5-15); CREATININE 0.51 mg/dL (0.7-1.3)
[2019-11-07] MEDS: LEVETIRACETAM 1,500 MG in SODIUM CHLORIDE 0.9% 100 ML IV SCH ×2 (05:47→17:53)
[2019-11-07 05:50] LABS: TRIGLYCERIDES 219 mg/dL (50-200)
[2019-11-07] MEDS: ARTIFICIAL TEARS OINT 3.5 GM EACHEYE SCH ×3 (06:11→23:09)
[2019-11-07 06:32] LABS: MD YES
[2019-11-07 06:33] LABS: BAND#(MANUAL) 7.98 x10^3/uL; BANDS%(MANUAL) 20 % (0-7); LYMPH#(MANUAL) 3.99 x10^3/uL (1-3.4); LYMPHS% (MANUAL) 10 % (22-44); METAMYELOCYTES% (MANUAL) 4 % (0-1); MONOS% (MANUAL) 5 % (2-9); MYELOCYTES# (MANUAL) 3.99 x10^3/uL (0-0); MYELOCYTES% (MANUAL) 10 % (0-0); NRBC % (MANUAL) 2 % (0-1); PROGRANULOCYTES% (MANUAL) 1 % (0-0); SEG#(MANUAL) 19.95 x10^3/uL (1.8-6.8); SEGS% (MANUAL) 50 % (42-75)
[2019-11-07 06:36] LABS: <PLATELET ESTIMATE> DECREASED; <PLT MORPHOLOGY> NORMAL PLT MORPH; ANISOCYTOSIS 1+
[2019-11-07] MEDS ORDERED: FUROSEMIDE 20 MG/2 ML IV ONE (08:00)
[2019-11-07] MEDS ORDERED: MAGNESIUM SULFATE PMX 2GM/50ML 50 ML IV ONE (08:00)
[2019-11-07] MEDS: POTASSIUM CHLORIDE 20 MEQ PACKET PO SCH ×2 (08:26→17:21)
[2019-11-07] MEDS: SODIUM CHLORIDE FLUSH 10ML SYR IVF SCH ×2 (08:26→21:56)
[2019-11-07] MEDS: PANTOPRAZOLE 40 MG IV IVPush SCH ×2 (08:26→21:56)
[2019-11-07] MEDS: DOCUSATE 50 MG/5 ML, 10ML UDC NG SCH (08:27)
[2019-11-07] MEDS: DEXMEDETOMIDINE 200 MCG in SODIUM CHLORIDE 0.9% 48 ML IV PRN ×3 (09:44→19:01)
[2019-11-07] MEDS: ENOXAPARIN 40 MG/0.4 ML SQ SCH (13:52)
[2019-11-07] MEDS: FENTANYL PF 2,500 MCG in SODIUM CHLORIDE 0.9% 200 ML IV PRN (17:54)
[2019-11-07] MEDS: VASOPRESSIN 100 UNIT in SODIUM CHLORIDE 0.9% 495 ML IV PRN (18:51)
[2019-11-07] MEDS ORDERED: NOREPINEPHRINE 16 MG in SODIUM CHLORIDE 0.9% 234 ML IV PRN (19:00)
[2019-11-08] MEDS: NOREPINEPHRINE 16 MG in SODIUM CHLORIDE 0.9% 234 ML IV PRN (01:44)
[2019-11-08] MEDS: DEXMEDETOMIDINE 200 MCG in SODIUM CHLORIDE 0.9% 48 ML IV PRN ×4 (01:44→22:24)
[2019-11-08] MEDS: ALBUTEROL/IPRATROPIUM 2.5MG/0.5MG, 3 ML INLINE SCH ×6 (03:23→22:31)
[2019-11-08 04:24] LABS: MEAN CORPUSCULAR HEMOGLOBIN 32.7 pg (27.5-34.5); MEAN CORPUSCULAR HGB CONC 33.1 g/dL (33.2-36.2); MEAN CORPUSCULAR VOLUME 98.7 fL (81-97); MEAN PLATELET VOLUME 9.1 fL (7.4-10.4); PLATELET COUNT 102 x10^3/uL (130-400); RED BLOOD COUNT 2.54 x10^6/uL (4.38-5.82); RED CELL DISTRIBUTION WIDTH 21.5 % (9.4-14.8)
[2019-11-08 04:26] LABS: MD YES
[2019-11-08 04:40] LABS: ANION GAP 8 mmol/L (5-15); CHLORIDE 111 mmol/L (98-107); CREATININE 0.43 mg/dL (0.7-1.3)
[2019-11-08 04:41] LABS: BAND#(MANUAL) 3.64 x10^3/uL; BANDS%(MANUAL) 10 % (0-7); LYMPH#(MANUAL) 2.18 x10^3/uL (1-3.4); LYMPHS% (MANUAL) 6 % (22-44); METAMYELOCYTES# (MANUAL) 1.46 x10^3/uL (0-0); METAMYELOCYTES% (MANUAL) 4 % (0-1); MONOS#(MANUAL) 0.36 x10^3/uL (0.3-2.7); MONOS% (MANUAL) 1 % (2-9); MYELOCYTES# (MANUAL) 0.36 x10^3/uL (0-0); MYELOCYTES% (MANUAL) 1 % (0-0); SEG#(MANUAL) 28.39 x10^3/uL (1.8-6.8); SEGS% (MANUAL) 78 % (42-75)
[2019-11-08 04:42] LABS: <PLATELET ESTIMATE> DECREASED; <PLT MORPHOLOGY> NORMAL PLT MORPH; ANISOCYTOSIS 1+
[2019-11-08] MEDS: PIPERACILLIN/TAZO/PMX 3.375GM 50 ML IV SCH ×4 (04:52→22:24)
[2019-11-08] MEDS: LEVETIRACETAM 1,500 MG in SODIUM CHLORIDE 0.9% 100 ML IV SCH ×2 (05:25→17:53)
[2019-11-08] MEDS ORDERED: POTASSIUM CHLORIDE 10% 40 MEQ/30 ML UDC PO ONE (06:30)
[2019-11-08] MEDS: ARTIFICIAL TEARS OINT 3.5 GM EACHEYE SCH (06:32)
[2019-11-08] MEDS ORDERED: POTASSIUM CHLORIDE 10% 40 MEQ/30 ML UDC ONE (06:39)
[2019-11-08 07:04] LABS: ALBUMIN 1.2 g/dL (3.4-5.0)
[2019-11-08 07:06] LABS: BILIRUBIN,INDIRECT 2.5 mg/dL (0.0-2.0); BILIRUBIN,TOTAL 12.8 mg/dL (0.2-1.0); TOTAL PROTEIN 5.5 g/dL (6.4-8.2)
[2019-11-08 07:08] LABS: BILIRUBIN, DIRECT 10.3 mg/dL (0.1-0.2)
[2019-11-08] MEDS ORDERED: NOREPINEPHRINE 16 MG in SODIUM CHLORIDE 0.9% 234 ML IV PRN (08:00)
[2019-11-08] MEDS: SODIUM CHLORIDE FLUSH 10ML SYR IVF SCH ×2 (09:00→21:02)
[2019-11-08] MEDS: POTASSIUM CHLORIDE 10% 20 MEQ/15 ML UDC NG SCH ×2 (09:03→21:02)
[2019-11-08] MEDS: FUROSEMIDE 20 MG/2 ML IV SCH ×2 (09:03→21:02)
[2019-11-08] MEDS: ENOXAPARIN 40 MG/0.4 ML SQ SCH (09:03)
[2019-11-08] MEDS: PANTOPRAZOLE 40 MG IV IVPush SCH ×2 (09:03→21:02)
[2019-11-08] MEDS: DOCUSATE 50 MG/5 ML, 10ML UDC NG SCH (09:03)
[2019-11-09] MEDS: ALBUTEROL/IPRATROPIUM 2.5MG/0.5MG, 3 ML INLINE SCH ×6 (02:26→22:57)
[2019-11-09] MEDS: PIPERACILLIN/TAZO/PMX 3.375GM 50 ML IV SCH ×4 (05:02→23:06)
[2019-11-09] MEDS: DEXMEDETOMIDINE 200 MCG in SODIUM CHLORIDE 0.9% 48 ML IV PRN (05:03)
[2019-11-09 05:09] LABS: INTERNATIONAL NORMALIZED RATIO 1.24 (0.93-1.1); PROTHROMBIN TIME 12.9 Seconds (9.6-11.5)
[2019-11-09 05:14] LABS: ALBUMIN 1.1 g/dL (3.4-5.0); ANION GAP 6 mmol/L (5-15); CALCIUM 7.6 mg/dL (8.5-10.1); CHLORIDE 112 mmol/L (98-107)
[2019-11-09 05:19] LABS: ALANINE AMINOTRANSFERASE 57 U/L (12-78); ALKALINE PHOSPHATASE 204 U/L (45-117); BILIRUBIN, DIRECT 9.2 mg/dL (0.1-0.2); BILIRUBIN,INDIRECT 2.1 mg/dL (0.0-2.0); BILIRUBIN,TOTAL 11.3 mg/dL (0.2-1.0); TOTAL PROTEIN 5.6 g/dL (6.4-8.2)
[2019-11-09 05:25] LABS: MEAN CORPUSCULAR HEMOGLOBIN 32.6 pg (27.5-34.5); MEAN CORPUSCULAR HGB CONC 32.8 g/dL (33.2-36.2); MEAN CORPUSCULAR VOLUME 99.4 fL (81-97); MEAN PLATELET VOLUME 9.1 fL (7.4-10.4); PLATELET COUNT 120 x10^3/uL (130-400); RED BLOOD COUNT 2.37 x10^6/uL (4.38-5.82); RED CELL DISTRIBUTION WIDTH 22.7 % (9.4-14.8)
[2019-11-09 05:47] LABS: MD YES
[2019-11-09] MEDS: LEVETIRACETAM 1,500 MG in SODIUM CHLORIDE 0.9% 100 ML IV SCH ×2 (05:48→18:21)
[2019-11-09 05:49] LABS: BAND#(MANUAL) 1.13 x10^3/uL; BANDS%(MANUAL) 3 % (0-7); EOS#(MANUAL) 0.38 x10^3/uL (0.0-0.4); EOS% (MANUAL) 1 % (1-7); LYMPH#(MANUAL) 0.75 x10^3/uL (1-3.4); LYMPHS% (MANUAL) 2 % (22-44); METAMYELOCYTES# (MANUAL) 0.75 x10^3/uL (0-0); METAMYELOCYTES% (MANUAL) 2 % (0-1); MONOS#(MANUAL) 1.13 x10^3/uL (0.3-2.7); MONOS% (MANUAL) 3 % (2-9); MYELOCYTES# (MANUAL) 0.38 x10^3/uL (0-0); MYELOCYTES% (MANUAL) 1 % (0-0); NRBC % (MANUAL) 2 % (0-1); SEG#(MANUAL) 33.18 x10^3/uL (1.8-6.8); SEGS% (MANUAL) 88 % (42-75)
[2019-11-09 05:50] LABS: <PLATELET ESTIMATE> DECREASED; <PLT MORPHOLOGY> NORMAL PLT MORPH; ANISOCYTOSIS 1+
[2019-11-09 05:51] LABS: POLYCHROMASIA 1+
[2019-11-09] MEDS ORDERED: POTASSIUM CHLORIDE 40 MEQ in SODIUM CHLORIDE 0.9% 100 ML IV ONE (06:30)
[2019-11-09] MEDS: DOCUSATE 50 MG/5 ML, 10ML UDC NG SCH (07:53)
[2019-11-09] MEDS: ENOXAPARIN 40 MG/0.4 ML SQ SCH (07:53)
[2019-11-09] MEDS: PANTOPRAZOLE 40 MG IV IVPush SCH ×2 (07:54→21:00)
[2019-11-09] MEDS: FUROSEMIDE 20 MG/2 ML IV SCH (07:54)
[2019-11-09] MEDS: SODIUM CHLORIDE FLUSH 10ML SYR IVF SCH ×2 (07:54→20:50)
[2019-11-09] MEDS: NEUTRA PHOS K 250 MG TABLET PO SCH ×2 (07:54→21:00)
[2019-11-09] MEDS ORDERED: METHYLNALTREXONE 12 MG/0.6 ML SYR SQ ONE (08:30)
[2019-11-09] MEDS: METOCLOPRAMIDE 5 MG/ML, 2ML IV SCH ×3 (08:47→20:49)
[2019-11-09] MEDS: NOREPINEPHRINE 16 MG in SODIUM CHLORIDE 0.9% 234 ML IV PRN (08:48)
[2019-11-09] MEDS ORDERED: POTASSIUM CHLORIDE 10% 20 MEQ/15 ML UDC NG SCH (09:00)
[2019-11-09] MEDS: PROPOFOL 100 ML IV PRN ×2 (10:48→18:48)
[2019-11-09] MEDS: KSCALE TO 4.5 IV SCH ×2 (12:00→18:00)
[2019-11-09] MEDS ORDERED: POTASSIUM CHLORIDE 30 MEQ in SODIUM CHLORIDE 0.9% 100 ML IV ONE (13:00)
[2019-11-09 13:19] LABS: QUANTIFERON TB Ag1-NIL 0 (0.000-0.000)
[2019-11-09] MEDS ORDERED: POTASSIUM CHLORIDE PMX 100 ML IV ONE (19:00)
[2019-11-09] MEDS ORDERED: FUROSEMIDE 20 MG/2 ML IV SCH (20:30)
[2019-11-09 23:51] LABS: ANION GAP 6 mmol/L (5-15); CALCIUM 7.5 mg/dL (8.5-10.1); CHLORIDE 115 mmol/L (98-107); CREATININE 0.54 mg/dL (0.7-1.3)
[2019-11-10] MEDS ORDERED: POTASSIUM CHLORIDE 30 MEQ in SODIUM CHLORIDE 0.9% 100 ML IV ONE ×3 (00:30→14:30)
[2019-11-10] MEDS: ALBUTEROL/IPRATROPIUM 2.5MG/0.5MG, 3 ML INLINE SCH ×6 (03:22→22:58)
[2019-11-10] MEDS: METOCLOPRAMIDE 5 MG/ML, 2ML IV SCH (03:28)
[2019-11-10 04:49] LABS: MEAN CORPUSCULAR HGB CONC 31.8 g/dL (33.2-36.2); MEAN CORPUSCULAR VOLUME 100.8 fL (81-97); MEAN PLATELET VOLUME 9.3 fL (7.4-10.4); PLATELET COUNT 150 x10^3/uL (130-400); RED BLOOD COUNT 2.49 x10^6/uL (4.38-5.82); RED CELL DISTRIBUTION WIDTH 23.7 % (9.4-14.8)
[2019-11-10 04:56] LABS: ANION GAP 5 mmol/L (5-15); CALCIUM 7.6 mg/dL (8.5-10.1); CHLORIDE 117 mmol/L (98-107)
[2019-11-10 04:59] LABS: CREATININE 0.51 mg/dL (0.7-1.3)
[2019-11-10 05:05] LABS: TRIGLYCERIDES 325 mg/dL (50-200)
[2019-11-10] MEDS: PIPERACILLIN/TAZO/PMX 3.375GM 50 ML IV SCH ×4 (05:06→22:16)
[2019-11-10] MEDS ORDERED: POTASSIUM CHLORIDE PMX 100 ML IV ONE ×2 (05:30→19:00)
[2019-11-10 05:38] LABS: MD YES
[2019-11-10 05:40] LABS: ANISOCYTOSIS 1+; BANDS%(MANUAL) 6 % (0-7); LYMPHS% (MANUAL) 3 % (22-44); METAMYELOCYTES% (MANUAL) 1 % (0-1); MONOS% (MANUAL) 2 % (2-9); NRBC % (MANUAL) 1 % (0-1); POLYCHROMASIA 1+; SEGS% (MANUAL) 88 % (42-75); TOXIC GRAN 1+
[2019-11-10 05:41] LABS: <PLATELET ESTIMATE> ADEQUATE; <PLT MORPHOLOGY> NORMAL PLT MORPH
[2019-11-10] MEDS: LEVETIRACETAM 1,500 MG in SODIUM CHLORIDE 0.9% 100 ML IV SCH ×2 (05:52→17:20)
[2019-11-10] MEDS: KSCALE TO 4.5 IV SCH ×4 (06:00→18:00)
[2019-11-10] MEDS ORDERED: TPN PER PHARMACY MC PRN (09:00)
[2019-11-10] MEDS: SODIUM CHLORIDE FLUSH 10ML SYR IVF SCH ×2 (09:00→20:27)
[2019-11-10] MEDS: DOCUSATE 50 MG/5 ML, 10ML UDC NG SCH (09:18)
[2019-11-10] MEDS: PANTOPRAZOLE 40 MG IV IVPush SCH ×2 (09:18→20:28)
[2019-11-10] MEDS: NEUTRA PHOS K 250 MG TABLET PO SCH ×2 (09:19→20:28)
[2019-11-10] MEDS: ENOXAPARIN 40 MG/0.4 ML SQ SCH (09:22)
[2019-11-10] MEDS: MIDAZOLAM HCL 25 MG in SODIUM CHLORIDE 0.9% 245 ML IV PRN ×4 (09:23→23:13)
[2019-11-10] MEDS: VASOPRESSIN 100 UNIT in SODIUM CHLORIDE 0.9% 495 ML IV PRN (09:23)
[2019-11-10] MEDS ORDERED: AMINO ACID 10% IV SCH ×2 (09:30→17:00)
[2019-11-10] MEDS ORDERED: DEXTROSE 70% IV SCH ×2 (09:30→17:00)
[2019-11-10] MEDS ORDERED: FILTER, DISP 1.2 MICRON FOR TPN/PVN IV PRN (09:30)
[2019-11-10] MEDS ORDERED: SMOF TPN IV SCH ×2 (09:30→17:00)
[2019-11-10] MEDS ORDERED: FAT EMUL IV SCH ×2 (09:30→17:00)
[2019-11-10] MEDS ORDERED: [UNRECOGNIZED DRUG - OTHER] IV SCH ×2 (09:30→17:00)
[2019-11-10] MEDS ORDERED: MAGNESIUM SULFATE PMX 2GM/50ML 50 ML IV ONE (10:30)
[2019-11-10] MEDS: ALBUMIN HUMAN 25% 100 ML IV SCH ×2 (10:38→20:28)
[2019-11-10] MEDS ORDERED: FENTANYL PF 100 MCG/2ML ONE (11:01)
[2019-11-10] MEDS ORDERED: FENTANYL PF 100 MCG/2ML IV ONE (11:30)
[2019-11-10] MEDS ORDERED: OMNIPAQUE 350 MG/ML, 75ML BOTTLE ONE (11:47)
[2019-11-10] MEDS: FUROSEMIDE 20 MG/2 ML IV SCH ×2 (12:08→22:16)
[2019-11-10] MEDS: NOREPINEPHRINE 16 MG in SODIUM CHLORIDE 0.9% 234 ML IV PRN (12:15)
[2019-11-10] MEDS ORDERED: DEXTROSE 50%, 50ML SYRINGE IVPush PRN (17:00)
[2019-11-10] MEDS ORDERED: DEXTROSE 10% 500 ML IV PRN (17:00)
[2019-11-10] MEDS: INSULIN REGULAR LOW DOSE Q6H X 48HRS SQ-INSULIN SCH (20:28)
[2019-11-10] MEDS ORDERED: VECURONIUM 50 MG in SODIUM CHLORIDE 0.9% 250 ML IV PRN (23:00)
[2019-11-10] MEDS ORDERED: VECURONIUM 10 MG IVPush ONE (23:00)
[2019-11-11] MEDS ORDERED: POTASSIUM CHLORIDE 30 MEQ in SODIUM CHLORIDE 0.9% 100 ML IV ONE ×3 (01:00→15:00)
[2019-11-11] MEDS: MIDAZOLAM HCL 25 MG in SODIUM CHLORIDE 0.9% 245 ML IV PRN ×6 (01:52→23:47)
[2019-11-11] MEDS: ALBUTEROL/IPRATROPIUM 2.5MG/0.5MG, 3 ML INLINE SCH ×6 (02:12→22:07)
[2019-11-11] MEDS: INSULIN REGULAR LOW DOSE Q6H X 48HRS SQ-INSULIN SCH ×4 (02:27→21:40)
[2019-11-11 05:10] LABS: CALCIUM 7.5 mg/dL (8.5-10.1); CHLORIDE 115 mmol/L (98-107)
[2019-11-11 05:18] LABS: ANION GAP 4 mmol/L (5-15); CREATININE 0.52 mg/dL (0.7-1.3)
[2019-11-11 05:21] LABS: PREALBUMIN < 3.0 mg/dL (20.0-40.0)
[2019-11-11] MEDS: PIPERACILLIN/TAZO/PMX 3.375GM 50 ML IV SCH ×3 (05:26→17:18)
[2019-11-11] MEDS: KSCALE TO 4.5 IV SCH ×4 (06:00→20:30)
[2019-11-11 06:09] LABS: MEAN CORPUSCULAR HEMOGLOBIN 32.9 pg (27.5-34.5); MEAN CORPUSCULAR HGB CONC 31.8 g/dL (33.2-36.2); MEAN CORPUSCULAR VOLUME 103.3 fL (81-97); MEAN PLATELET VOLUME 9.4 fL (7.4-10.4); PLATELET COUNT 151 x10^3/uL (130-400); RED CELL DISTRIBUTION WIDTH 25.7 % (9.4-14.8)
[2019-11-11] MEDS: LEVETIRACETAM 1,500 MG in SODIUM CHLORIDE 0.9% 100 ML IV SCH ×2 (06:15→18:03)
[2019-11-11] MEDS ORDERED: MAGNESIUM SULFATE PMX 2GM/50ML 50 ML IV ONE (06:30)
[2019-11-11 06:38] LABS: MD YES
[2019-11-11 06:39] LABS: BAND#(MANUAL) 0.41 x10^3/uL; BANDS%(MANUAL) 1 % (0-7); LYMPH#(MANUAL) 2.84 x10^3/uL (1-3.4); LYMPHS% (MANUAL) 7 % (22-44); MONOS#(MANUAL) 0.41 x10^3/uL (0.3-2.7); MONOS% (MANUAL) 1 % (2-9); SEG#(MANUAL) 36.54 x10^3/uL (1.8-6.8); SEGS% (MANUAL) 90 % (42-75)
[2019-11-11 06:40] LABS: <PLATELET ESTIMATE> ADEQUATE; <PLT MORPHOLOGY> NORMAL PLT MORPH; EOS#(MANUAL) 0.41 x10^3/uL (0.0-0.4); EOS% (MANUAL) 1 % (1-7)
[2019-11-11 06:41] LABS: ANISOCYTOSIS 1+
[2019-11-11] MEDS: NOREPINEPHRINE 16 MG in SODIUM CHLORIDE 0.9% 234 ML IV PRN (06:42)
[2019-11-11] MEDS: DOCUSATE 50 MG/5 ML, 10ML UDC NG SCH (09:00)
[2019-11-11] MEDS: NEUTRA PHOS K 250 MG TABLET PO SCH ×2 (09:00→21:41)
[2019-11-11 09:42] VITALS: BP 126/71
[2019-11-11] MEDS: ALBUMIN HUMAN 25% 100 ML IV SCH ×2 (09:50→21:41)
[2019-11-11 10:00] VITALS: BP 111/71
[2019-11-11] MEDS: PANTOPRAZOLE 40 MG IV IVPush SCH ×2 (10:33→21:39)
[2019-11-11] MEDS: ENOXAPARIN 40 MG/0.4 ML SQ SCH (10:33)
[2019-11-11] MEDS: SODIUM CHLORIDE FLUSH 10ML SYR IVF SCH ×2 (10:34→21:41)
[2019-11-11] MEDS: FUROSEMIDE 40 MG/4 ML IV SCH ×2 (12:08→21:40)
[2019-11-11 12:30] VITALS: BP 123/62
[2019-11-11 13:30] VITALS: BP 115/54
[2019-11-11] MEDS: FENTANYL PF 2,500 MCG in SODIUM CHLORIDE 0.9% 200 ML IV PRN (14:47)
[2019-11-11] MEDS ORDERED: DEXTROSE 70% IV SCH (17:00)
[2019-11-11] MEDS ORDERED: AMINO ACID 10% IV SCH (17:00)
[2019-11-11] MEDS ORDERED: [UNRECOGNIZED DRUG - OTHER] IV SCH (17:00)
[2019-11-11] MEDS ORDERED: FAT EMUL IV SCH (17:00)
[2019-11-11] MEDS ORDERED: FILTER, DISP 1.2 MICRON FOR TPN/PVN IV PRN (17:00)
[2019-11-11] MEDS ORDERED: SMOF TPN IV SCH (17:00)
[2019-11-11] MEDS ORDERED: POTASSIUM CHLORIDE PMX 100 ML IV ONE (22:00)
[2019-11-12] MEDS: PIPERACILLIN/TAZO/PMX 3.375GM 50 ML IV SCH ×5 (00:48→23:32)
[2019-11-12] MEDS: KSCALE TO 4.5 IV SCH ×4 (01:30→20:44)
[2019-11-12] MEDS: VECURONIUM 50 MG in SODIUM CHLORIDE 0.9% 250 ML IV PRN ×2 (01:30→14:43)
[2019-11-12] MEDS: ALBUTEROL/IPRATROPIUM 2.5MG/0.5MG, 3 ML INLINE SCH ×6 (02:11→22:40)
[2019-11-12] MEDS: MIDAZOLAM HCL 25 MG in SODIUM CHLORIDE 0.9% 245 ML IV PRN ×7 (02:33→22:01)
[2019-11-12] MEDS ORDERED: POTASSIUM CHLORIDE 30 MEQ in SODIUM CHLORIDE 0.9% 100 ML IV ONE (03:00)
[2019-11-12 03:53] LABS: ANION GAP 5 mmol/L (5-15); CALCIUM 7.6 mg/dL (8.5-10.1); CHLORIDE 116 mmol/L (98-107); CREATININE 0.48 mg/dL (0.7-1.3)
[2019-11-12 03:56] LABS: MEAN CORPUSCULAR HEMOGLOBIN 30.4 pg (27.5-34.5); MEAN CORPUSCULAR VOLUME 94.9 fL (81-97); MEAN PLATELET VOLUME 9.9 fL (7.4-10.4); PLATELET COUNT 142 x10^3/uL (130-400); RED BLOOD COUNT 2.41 x10^6/uL (4.38-5.82); RED CELL DISTRIBUTION WIDTH 33.9 % (9.4-14.8)
[2019-11-12] MEDS: INSULIN REGULAR LOW DOSE Q6H X 48HRS SQ-INSULIN SCH (04:09)
[2019-11-12 04:15] LABS: MD YES
[2019-11-12 04:18] LABS: ANISOCYTOSIS 2+; BAND#(MANUAL) 0.38 x10^3/uL; BANDS%(MANUAL) 1 % (0-7); BASOS#(MANUAL) 0.38 x10^3/uL (0-0.1); BASOS% (MANUAL) 1 % (0-1); EOS#(MANUAL) 0.38 x10^3/uL (0.0-0.4); EOS% (MANUAL) 1 % (1-7); LYMPH#(MANUAL) 1.13 x10^3/uL (1-3.4); LYMPHS% (MANUAL) 3 % (22-44); MONOS% (MANUAL) 4 % (2-9); NRBC % (MANUAL) 1 % (0-1); POLYCHROMASIA 1+; SEG#(MANUAL) 33.75 x10^3/uL (1.8-6.8); SEGS% (MANUAL) 90 % (42-75)
[2019-11-12 04:20] LABS: TARGET CELLS 1+
[2019-11-12 04:21] LABS: <PLATELET ESTIMATE> ADEQUATE; <PLT MORPHOLOGY> NORMAL PLT MORPH; OVALOCYTES 1+
[2019-11-12] MEDS: LEVETIRACETAM 1,500 MG in SODIUM CHLORIDE 0.9% 100 ML IV SCH ×2 (06:27→18:29)
[2019-11-12] MEDS: ALBUMIN HUMAN 25% 100 ML IV SCH ×2 (08:03→20:22)
[2019-11-12] MEDS: PANTOPRAZOLE 40 MG IV IVPush SCH ×2 (08:04→20:22)
[2019-11-12] MEDS: ENOXAPARIN 40 MG/0.4 ML SQ SCH (08:04)
[2019-11-12] MEDS ORDERED: POTASSIUM PHOSPHATE 44 MEQ in SODIUM CHLORIDE 0.9% 500 ML IV ONE (09:00)
[2019-11-12] MEDS: DOCUSATE 50 MG/5 ML, 10ML UDC NG SCH (09:00)
[2019-11-12] MEDS: NEUTRA PHOS K 250 MG TABLET PO SCH ×2 (09:00→20:22)
[2019-11-12] MEDS: FUROSEMIDE 40 MG/4 ML IV SCH ×2 (10:53→20:22)
[2019-11-12] MEDS: SODIUM CHLORIDE FLUSH 10ML SYR IVF SCH ×2 (10:55→20:22)
[2019-11-12] MEDS: NOREPINEPHRINE 16 MG in SODIUM CHLORIDE 0.9% 234 ML IV PRN (12:31)
[2019-11-12] MEDS: FENTANYL PF 2,500 MCG in SODIUM CHLORIDE 0.9% 200 ML IV PRN (14:42)
[2019-11-12] MEDS ORDERED: [UNRECOGNIZED DRUG - OTHER] IV SCH (17:00)
[2019-11-12] MEDS ORDERED: FILTER, DISP 1.2 MICRON FOR TPN/PVN IV PRN (17:00)
[2019-11-12] MEDS ORDERED: AMINO ACID 10% IV SCH (17:00)
[2019-11-12] MEDS ORDERED: FAT EMUL IV SCH (17:00)
[2019-11-12] MEDS ORDERED: SMOF TPN IV SCH (17:00)
[2019-11-12] MEDS ORDERED: DEXTROSE 70% IV SCH (17:00)
[2019-11-12] MEDS ORDERED: INSULIN REGULAR LOW DOSE QDAY SQ-INSULIN SCH (21:00)
[2019-11-13 02:14] LABS: ANION GAP 2 mmol/L (5-15); CALCIUM 7.7 mg/dL (8.5-10.1); CHLORIDE 116 mmol/L (98-107); CREATININE 0.48 mg/dL (0.7-1.3)
[2019-11-13 02:16] LABS: TRIGLYCERIDES 233 mg/dL (50-200)
[2019-11-13] MEDS: KSCALE TO 4.5 IV SCH ×4 (02:22→21:00)
[2019-11-13] MEDS ORDERED: POTASSIUM CHLORIDE PMX 100 ML IV ONE (02:30)
[2019-11-13] MEDS: ALBUTEROL/IPRATROPIUM 2.5MG/0.5MG, 3 ML INLINE SCH ×6 (02:33→22:44)
[2019-11-13] MEDS: VECURONIUM 50 MG in SODIUM CHLORIDE 0.9% 250 ML IV PRN ×2 (02:41→16:17)
[2019-11-13] MEDS: MIDAZOLAM HCL 25 MG in SODIUM CHLORIDE 0.9% 245 ML IV PRN ×6 (02:42→23:56)
[2019-11-13] MEDS: PIPERACILLIN/TAZO/PMX 3.375GM 50 ML IV SCH ×4 (04:43→23:09)
[2019-11-13 04:57] LABS: ANION GAP 2 mmol/L (5-15); CALCIUM 7.8 mg/dL (8.5-10.1); CHLORIDE 116 mmol/L (98-107); CREATININE 0.39 mg/dL (0.7-1.3)
[2019-11-13 05:16] LABS: MEAN CORPUSCULAR HEMOGLOBIN 30.7 pg (27.5-34.5); MEAN CORPUSCULAR HGB CONC 31.5 g/dL (33.2-36.2); MEAN CORPUSCULAR VOLUME 97.5 fL (81-97); MEAN PLATELET VOLUME 10.4 fL (7.4-10.4); PLATELET COUNT 135 x10^3/uL (130-400); RED BLOOD COUNT 2.32 x10^6/uL (4.38-5.82); RED CELL DISTRIBUTION WIDTH 33.2 % (9.4-14.8)
[2019-11-13 05:57] LABS: MD YES
[2019-11-13 05:58] LABS: BAND#(MANUAL) 1.07 x10^3/uL; BANDS%(MANUAL) 3 % (0-7); LYMPH#(MANUAL) 0.71 x10^3/uL (1-3.4); LYMPHS% (MANUAL) 2 % (22-44); NRBC % (MANUAL) 2 % (0-1)
[2019-11-13 05:59] LABS: ANISOCYTOSIS 2+; HYPOCHROMIA 1+; MONOS#(MANUAL) 1.43 x10^3/uL (0.3-2.7); MONOS% (MANUAL) 4 % (2-9); POLYCHROMASIA 1+; SEG#(MANUAL) 32.49 x10^3/uL (1.8-6.8); SEGS% (MANUAL) 91 % (42-75)
[2019-11-13 06:00] LABS: <PLATELET ESTIMATE> ADEQUATE; <PLT MORPHOLOGY> NORMAL PLT MORPH; OVALOCYTES 1+
[2019-11-13] MEDS: LEVETIRACETAM 1,500 MG in SODIUM CHLORIDE 0.9% 100 ML IV SCH ×2 (06:16→18:10)
[2019-11-13] MEDS: ENOXAPARIN 40 MG/0.4 ML SQ SCH (08:00)
[2019-11-13] MEDS: ALBUMIN HUMAN 25% 100 ML IV SCH ×2 (08:00→21:21)
[2019-11-13] MEDS: PANTOPRAZOLE 40 MG IV IVPush SCH ×2 (08:00→21:20)
[2019-11-13] MEDS: DOCUSATE 50 MG/5 ML, 10ML UDC NG SCH (09:00)
[2019-11-13] MEDS ORDERED: FUROSEMIDE 40 MG/4 ML IV ONE (09:00)
[2019-11-13] MEDS ORDERED: SULFAMETH/TRIMETHOPRIM 40-8MG/ML SUSP. PO SCH (09:00)
[2019-11-13] MEDS: NEUTRA PHOS K 250 MG TABLET PO SCH ×2 (09:00→21:00)
[2019-11-13] MEDS ORDERED: FLUCONAZOLE 100 MG TABLET PO ONE ×2 (09:00)
[2019-11-13] MEDS: INSULIN REGULAR MEDIUM DOSE QDAY SQ-INSULIN SCH (09:00)
[2019-11-13] MEDS: SODIUM CHLORIDE FLUSH 10ML SYR IVF SCH ×2 (09:05→21:20)
[2019-11-13] MEDS ORDERED: MAGNESIUM SULFATE PMX 2GM/50ML 50 ML IVPB ONE (10:00)
[2019-11-13] MEDS: SULFAMETH./TRIMETHOPRIM 10 ML in DEXTROSE 5% 250 ML IV SCH (12:35)
[2019-11-13] MEDS ORDERED: FILTER, DISP 1.2 MICRON FOR TPN/PVN IV PRN (17:00)
[2019-11-13] MEDS ORDERED: SMOF TPN IV SCH (17:00)
[2019-11-13] MEDS ORDERED: DEXTROSE 70% IV SCH (17:00)
[2019-11-13] MEDS ORDERED: FAT EMUL IV SCH (17:00)
[2019-11-13] MEDS ORDERED: [UNRECOGNIZED DRUG - OTHER] IV SCH (17:00)
[2019-11-13] MEDS ORDERED: AMINO ACID 10% IV SCH (17:00)
[2019-11-14] MEDS: ALBUTEROL/IPRATROPIUM 2.5MG/0.5MG, 3 ML INLINE SCH ×6 (02:36→22:03)
[2019-11-14] MEDS: KSCALE TO 4.5 IV SCH (03:00)
[2019-11-14] MEDS: MIDAZOLAM HCL 25 MG in SODIUM CHLORIDE 0.9% 245 ML IV PRN (03:26)
[2019-11-14 04:05] LABS: ALANINE AMINOTRANSFERASE 25 U/L (12-78); ALBUMIN 2.3 g/dL (3.4-5.0); ANION GAP 3 mmol/L (5-15); CHLORIDE 117 mmol/L (98-107); CREATININE 0.59 mg/dL (0.7-1.3)
[2019-11-14 04:07] LABS: ALKALINE PHOSPHATASE 98 U/L (45-117); BILIRUBIN,TOTAL 7.4 mg/dL (0.2-1.0); TOTAL PROTEIN 5.8 g/dL (6.4-8.2)
[2019-11-14 04:34] LABS: MEAN CORPUSCULAR HEMOGLOBIN 31.3 pg (27.5-34.5); MEAN CORPUSCULAR HGB CONC 31.5 g/dL (33.2-36.2); MEAN CORPUSCULAR VOLUME 99.4 fL (81-97); MEAN PLATELET VOLUME 11.2 fL (7.4-10.4); PLATELET COUNT 136 x10^3/uL (130-400); RED CELL DISTRIBUTION WIDTH 31.7 % (9.4-14.8)
[2019-11-14] MEDS: PIPERACILLIN/TAZO/PMX 3.375GM 50 ML IV SCH ×4 (04:34→23:04)
[2019-11-14] MEDS: LEVETIRACETAM 1,500 MG in SODIUM CHLORIDE 0.9% 100 ML IV SCH ×2 (05:14→19:42)
[2019-11-14 05:46] VITALS: BP 97/49
[2019-11-14 05:48] LABS: MD YES
[2019-11-14 05:49] LABS: NRBC % (MANUAL) 2 % (0-1)
[2019-11-14 05:50] LABS: ANISOCYTOSIS 2+; BAND#(MANUAL) 1.92 x10^3/uL; BANDS%(MANUAL) 7 % (0-7); HYPOCHROMIA 1+; LYMPH#(MANUAL) 0.55 x10^3/uL (1-3.4); LYMPHS% (MANUAL) 2 % (22-44); MONOS#(MANUAL) 0.55 x10^3/uL (0.3-2.7); MONOS% (MANUAL) 2 % (2-9); SEG#(MANUAL) 24.39 x10^3/uL (1.8-6.8); SEGS% (MANUAL) 89 % (42-75)
[2019-11-14 05:51] LABS: OVALOCYTES 1+; POLYCHROMASIA 1+; STOMATOCYTES 1+
[2019-11-14 05:52] LABS: <PLATELET ESTIMATE> ADEQUATE; LARGE PLATELETS 1+
[2019-11-14 06:05] VITALS: BP 96/49
[2019-11-14] MEDS: MIDAZOLAM HCL 50 MG in SODIUM CHLORIDE 0.9% 240 ML IV PRN ×3 (06:21→21:08)
[2019-11-14 06:28] VITALS: BP 100/53
[2019-11-14 07:45] VITALS: BP 100/54
[2019-11-14] MEDS: FENTANYL PF 2,500 MCG in SODIUM CHLORIDE 0.9% 200 ML IV PRN (08:09)
[2019-11-14] MEDS: DOCUSATE 50 MG/5 ML, 10ML UDC NG SCH (08:37)
[2019-11-14] MEDS: ENOXAPARIN 40 MG/0.4 ML SQ SCH (08:44)
[2019-11-14] MEDS: ALBUMIN HUMAN 25% 100 ML IV SCH ×2 (08:44→21:08)
[2019-11-14] MEDS: PANTOPRAZOLE 40 MG IV IVPush SCH ×2 (08:44→21:08)
[2019-11-14 08:45] VITALS: BP 93/49
[2019-11-14] MEDS: SODIUM CHLORIDE FLUSH 10ML SYR IVF SCH ×2 (08:45→21:08)
[2019-11-14] MEDS: ARTIFICIAL TEARS OINT 3.5 GM OP PRN ×4 (08:56→21:11)
[2019-11-14] MEDS: ARTIFICIAL TEARS OINT 3.5 GM OP SCH ×3 (09:00→21:00)
[2019-11-14] MEDS: INSULIN REGULAR MEDIUM DOSE QDAY SQ-INSULIN SCH (09:00)
[2019-11-14] MEDS ORDERED: MAGNESIUM SULFATE PMX 2GM/50ML 50 ML IVPB ONE (09:00)
[2019-11-14] MEDS: FUROSEMIDE 40 MG/4 ML IV SCH ×2 (09:36→21:08)
[2019-11-14] MEDS: SULFAMETH./TRIMETHOPRIM 10 ML in DEXTROSE 5% 250 ML IV SCH (11:58)
[2019-11-14] MEDS: NOREPINEPHRINE 16 MG in SODIUM CHLORIDE 0.9% 234 ML IV PRN (14:57)
[2019-11-14] MEDS ORDERED: FILTER, DISP 1.2 MICRON FOR TPN/PVN IV PRN (17:00)
[2019-11-14] MEDS: SMOF TPN IV SCH (18:08)
[2019-11-14] MEDS: FAT EMUL IV SCH (18:08)
[2019-11-14] MEDS: [UNRECOGNIZED DRUG - OTHER] IV SCH (18:08)
[2019-11-14] MEDS: DEXTROSE 70% IV SCH (18:08)
[2019-11-14] MEDS: AMINO ACID 10% IV SCH (18:08)
[2019-11-15] MEDS: MIDAZOLAM HCL 100 MG in SODIUM CHLORIDE 0.9% 230 ML IV PRN ×3 (01:23→20:58)
[2019-11-15] MEDS: VECURONIUM 50 MG in SODIUM CHLORIDE 0.9% 250 ML IV PRN ×2 (01:23→18:44)
[2019-11-15] MEDS: ALBUTEROL/IPRATROPIUM 2.5MG/0.5MG, 3 ML INLINE SCH ×6 (02:26→22:20)
[2019-11-15] MEDS: ARTIFICIAL TEARS OINT 3.5 GM OP SCH ×4 (03:00→20:49)
[2019-11-15] MEDS: ARTIFICIAL TEARS OINT 3.5 GM OP PRN ×3 (03:49→20:48)
[2019-11-15 04:10] LABS: MEAN CORPUSCULAR HEMOGLOBIN 31.6 pg (27.5-34.5); MEAN CORPUSCULAR HGB CONC 31.3 g/dL (33.2-36.2); MEAN CORPUSCULAR VOLUME 100.8 fL (81-97); MEAN PLATELET VOLUME 11.8 fL (7.4-10.4); PLATELET COUNT 131 x10^3/uL (130-400); RED BLOOD COUNT 2.56 x10^6/uL (4.38-5.82); RED CELL DISTRIBUTION WIDTH 28.6 % (9.4-14.8)
[2019-11-15 04:14] LABS: ANION GAP 4 mmol/L (5-15); CALCIUM 8.4 mg/dL (8.5-10.1); CHLORIDE 115 mmol/L (98-107); CREATININE 1.09 mg/dL (0.7-1.3)
[2019-11-15 04:25] LABS: MD YES
[2019-11-15 04:26] LABS: ANISOCYTOSIS 2+; BAND#(MANUAL) 0.26 x10^3/uL; BANDS%(MANUAL) 1 % (0-7); BASOS#(MANUAL) 0.79 x10^3/uL (0-0.1); BASOS% (MANUAL) 3 % (0-1); EOS#(MANUAL) 0.26 x10^3/uL (0.0-0.4); EOS% (MANUAL) 1 % (1-7); LYMPH#(MANUAL) 1.32 x10^3/uL (1-3.4); LYMPHS% (MANUAL) 5 % (22-44); METAMYELOCYTES# (MANUAL) 0.26 x10^3/uL (0-0); METAMYELOCYTES% (MANUAL) 1 % (0-1); MONOS#(MANUAL) 1.32 x10^3/uL (0.3-2.7); MONOS% (MANUAL) 5 % (2-9); MYELOCYTES# (MANUAL) 0.79 x10^3/uL (0-0); MYELOCYTES% (MANUAL) 3 % (0-0); NRBC % (MANUAL) 2 % (0-1); SEG#(MANUAL) 21.38 x10^3/uL (1.8-6.8); SEGS% (MANUAL) 81 % (42-75)
[2019-11-15 04:27] LABS: POLYCHROMASIA 1+; TARGET CELLS 1+
[2019-11-15 04:28] LABS: OVALOCYTES 1+
[2019-11-15] MEDS ORDERED: SODIUM BICARBONATE 1 MEQ/ML, 50ML VIAL IVPush STA (04:28)
[2019-11-15 04:30] LABS: <PLATELET ESTIMATE> ADEQUATE; <PLT MORPHOLOGY> NORMAL PLT MORPH
[2019-11-15] MEDS ORDERED: SODIUM BICARBONATE 1 MEQ/ML, 50ML VIAL ONE (04:33)
[2019-11-15] MEDS: PIPERACILLIN/TAZO/PMX 3.375GM 50 ML IV SCH ×4 (04:48→22:32)
[2019-11-15] MEDS: LEVETIRACETAM 1,500 MG in SODIUM CHLORIDE 0.9% 100 ML IV SCH ×2 (05:52→18:09)
[2019-11-15] MEDS ORDERED: FUROSEMIDE 40 MG/4 ML IV ONE (06:30)
[2019-11-15] MEDS: ENOXAPARIN 40 MG/0.4 ML SQ SCH (08:07)
[2019-11-15] MEDS: INSULIN REGULAR MEDIUM DOSE QDAY SQ-INSULIN SCH (08:07)
[2019-11-15] MEDS: PANTOPRAZOLE 40 MG IV IVPush SCH ×2 (08:07→20:47)
[2019-11-15] MEDS: SODIUM CHLORIDE FLUSH 10ML SYR IVF SCH ×2 (08:08→20:49)
[2019-11-15] MEDS: DOCUSATE 50 MG/5 ML, 10ML UDC NG SCH (08:08)
[2019-11-15] MEDS: ALBUMIN HUMAN 25% 100 ML IV SCH ×2 (08:09→20:42)
[2019-11-15] MEDS ORDERED: SODIUM BICARBONATE 8.4% 150 MEQ in DEXTROSE 10% 1,000 ML IV SCH (09:00)
[2019-11-15] MEDS: NOREPINEPHRINE 16 MG in SODIUM CHLORIDE 0.9% 234 ML IV PRN ×2 (09:00→20:59)
[2019-11-15] MEDS: SODIUM BICARBONATE 8.4% 150 MEQ in DEXTROSE 10% 1,000 ML IV SCH (09:00)
[2019-11-15] MEDS: FUROSEMIDE 40 MG/4 ML IV SCH ×2 (10:47→22:27)
[2019-11-15] MEDS: SULFAMETH./TRIMETHOPRIM 10 ML in DEXTROSE 5% 250 ML IV SCH (11:51)
[2019-11-15] MEDS: FENTANYL PF 2,500 MCG in SODIUM CHLORIDE 0.9% 200 ML IV PRN (13:53)
[2019-11-15] MEDS: DEXTROSE 70% IV SCH (17:00)
[2019-11-15] MEDS: SMOF TPN IV SCH (17:00)
[2019-11-15] MEDS: AMINO ACID 10% IV SCH (17:00)
[2019-11-15] MEDS: [UNRECOGNIZED DRUG - OTHER] IV SCH (17:00)
[2019-11-15] MEDS: FAT EMUL IV SCH (17:00)
[2019-11-16] MEDS: ALBUTEROL/IPRATROPIUM 2.5MG/0.5MG, 3 ML INLINE SCH ×5 (02:20→18:45)
[2019-11-16] MEDS: ARTIFICIAL TEARS OINT 3.5 GM OP SCH ×4 (03:24→20:13)
[2019-11-16 04:50] LABS: ANION GAP 7 mmol/L (5-15); CALCIUM 8.3 mg/dL (8.5-10.1); CHLORIDE 111 mmol/L (98-107); CREATININE 1.68 mg/dL (0.7-1.3)
[2019-11-16 04:52] LABS: MEAN CORPUSCULAR HGB CONC 32.3 g/dL (33.2-36.2); MEAN CORPUSCULAR VOLUME 99.3 fL (81-97); MEAN PLATELET VOLUME 11.8 fL (7.4-10.4); PLATELET COUNT 120 x10^3/uL (130-400); RED CELL DISTRIBUTION WIDTH 28.4 % (9.4-14.8)
[2019-11-16] MEDS: PIPERACILLIN/TAZO/PMX 3.375GM 50 ML IV SCH ×3 (04:58→16:31)
[2019-11-16 05:45] LABS: MD YES
[2019-11-16] MEDS: LEVETIRACETAM 1,500 MG in SODIUM CHLORIDE 0.9% 100 ML IV SCH ×2 (05:45→18:12)
[2019-11-16 05:47] LABS: ANISOCYTOSIS 2+; BANDS%(MANUAL) 4 % (0-7); HYPOCHROMIA 1+; LYMPHS% (MANUAL) 8 % (22-44); MONOS#(MANUAL) 1.75 x10^3/uL (0.3-2.7); MONOS% (MANUAL) 7 % (2-9); MYELOCYTES% (MANUAL) 2 % (0-0); NRBC % (MANUAL) 4 % (0-1); POLYCHROMASIA 1+; SEG#(MANUAL) 19.75 x10^3/uL (1.8-6.8); SEGS% (MANUAL) 79 % (42-75)
[2019-11-16 05:48] LABS: <PLATELET ESTIMATE> ADEQUATE; LARGE PLATELETS 1+
[2019-11-16] MEDS: VASOPRESSIN 100 UNIT in SODIUM CHLORIDE 0.9% 495 ML IV PRN (06:48)
[2019-11-16] MEDS: MIDAZOLAM HCL 100 MG in SODIUM CHLORIDE 0.9% 230 ML IV PRN ×2 (06:49→16:34)
[2019-11-16] MEDS: DOCUSATE 50 MG/5 ML, 10ML UDC NG SCH (07:37)
[2019-11-16] MEDS: SODIUM BICARBONATE 8.4% 150 MEQ in DEXTROSE 10% 1,000 ML IV SCH (07:37)
[2019-11-16] MEDS: ENOXAPARIN 40 MG/0.4 ML SQ SCH (07:37)
[2019-11-16] MEDS: SODIUM CHLORIDE FLUSH 10ML SYR IVF SCH ×2 (07:37→20:06)
[2019-11-16] MEDS: ALBUMIN HUMAN 25% 100 ML IV SCH ×2 (07:37→21:00)
[2019-11-16] MEDS: PANTOPRAZOLE 40 MG IV IVPush SCH ×2 (07:38→20:12)
[2019-11-16] MEDS: FENTANYL PF 2,500 MCG in SODIUM CHLORIDE 0.9% 200 ML IV PRN (07:39)
[2019-11-16] MEDS: NOREPINEPHRINE 16 MG in SODIUM CHLORIDE 0.9% 234 ML IV PRN ×2 (07:39→16:32)
[2019-11-16] MEDS: FUROSEMIDE 40 MG/4 ML IV SCH ×2 (08:30→20:05)
[2019-11-16] MEDS: INSULIN REGULAR MEDIUM DOSE QDAY SQ-INSULIN SCH (08:30)
[2019-11-16] MEDS: PHENYLEPHRINE 20 MG in SODIUM CHLORIDE 0.9% 248 ML IV PRN ×5 (08:31→22:05)
[2019-11-16] MEDS: SULFAMETH./TRIMETHOPRIM 10 ML in DEXTROSE 5% 250 ML IV SCH (12:44)
[2019-11-16] MEDS: ARTIFICIAL TEARS OINT 3.5 GM OP PRN (20:12)
== END 2019-11-17 04:25 | disposition expired | DRG 720 ==
LOC: ED 09:21 → EDIP 09:26 → ED 09:50 → CCU 11:31
PROVIDERS: ADMIT Internal Medicine; ATTEND Internal Medicine
PROC: 5A1955Z Respiratory Ventilation, Greater than 96 Consecutive Hours (ICD-10-PCS; 2019-11-01)
PROC: 5A12012 Performance of Cardiac Output, Single, Manual (ICD-10-PCS; 2019-11-01)
PROC: 0BH17EZ Insertion of Endotracheal Airway into Trachea, Via Natural or Artificial Opening (ICD-10-PCS; 2019-11-01)
PROC: 02HV33Z Insertion of Infusion Device into Superior Vena Cava, Percutaneous Approach (ICD-10-PCS; 2019-11-01)
PROC: B548ZZA Ultrasonography of Superior Vena Cava, Guidance (ICD-10-PCS; 2019-11-01)
PROC: 03HY32Z Insertion of Monitoring Device into Upper Artery, Percutaneous Approach (ICD-10-PCS; 2019-11-01)
PROC: 4A133B1 Monitoring of Arterial Pressure, Peripheral, Percutaneous Approach (ICD-10-PCS; 2019-11-01)
PROC: 4A133J1 Monitoring of Arterial Pulse, Peripheral, Percutaneous Approach (ICD-10-PCS; 2019-11-01)
PROC: 30233N1 Transfusion of Nonautologous Red Blood Cells into Peripheral Vein, Percutaneous Approach (ICD-10-PCS; principal; 2019-11-02)
PROC: 0T9B70Z Drainage of Bladder with Drainage Device, Via Natural or Artificial Opening (ICD-10-PCS; 2019-11-04)
DX: A41.9 Sepsis, unspecified organism (principal); J96.01 Acute respiratory failure with hypoxia; I46.9 Cardiac arrest, cause unspecified; J69.0 Pneumonitis due to inhalation of food and vomit; G93.1 Anoxic brain damage, not elsewhere classified; E43 Unspecified severe protein-calorie malnutrition; J85.0 Gangrene and necrosis of lung; N17.0 Acute kidney failure with tubular necrosis; R65.21 Severe sepsis with septic shock; J91.8 Pleural effusion in other conditions classified elsewhere; Z66 Do not resuscitate; G93.41 Metabolic encephalopathy; D68.4 Acquired coagulation factor deficiency; E87.0 Hyperosmolality and hypernatremia; D53.9 Nutritional anemia, unspecified; D63.8 Anemia in other chronic diseases classified elsewhere; D72.810 Lymphocytopenia; D72.823 Leukemoid reaction; Z68.36 Body mass index [BMI] 36.0-36.9, adult; E83.42 Hypomagnesemia; E83.51 Hypocalcemia; E87.1 Hypo-osmolality and hyponatremia; E87.5 Hyperkalemia; E87.6 Hypokalemia; F10.288 Alcohol dependence with other alcohol-induced disorder; G40.901 Epilepsy, unspecified, not intractable, with status epilepticus; J93.82 Other air leak; K92.2 Gastrointestinal hemorrhage, unspecified; K56.7 Ileus, unspecified; K70.10 Alcoholic hepatitis without ascites; K70.30 Alcoholic cirrhosis of liver without ascites; K76.0 Fatty (change of) liver, not elsewhere classified; K83.1 Obstruction of bile duct; Z51.5 Encounter for palliative care; Z91.14 Patient's other noncompliance with medication regimen; Z99.11 Dependence on respirator [ventilator] status
CPT/HCPCS: 36415; 36600; 71045; 71260; 71275; 76700; 80048; 80053; 80074; 80076; 80202; 81001; 82140; 82310; 82330; 82533; 82550; 82607; 82803; 82962; 83605; 83690; 83735; 84100; 84132; 84134; 84145; 84443; 84478; 84484; 85014; 85018; 85025; 85610; 86022; 86361; 86480; 86632; 86738; 86850; 86900; 86923; 87015; 87040; 87070; 87081; 87086; 87116; 87205; 87206; 87400; 87486; 87536; 87581; 87633; 87806; 93005; 93306; 94002; 94003; 94640; 95819; 99292; G0378; J0456; J0610; J1650; J1815; J1940; J1953; J2250; J2354; J2543; J2704; J3010; J3370; J3411; J3475; J3480; J7060; J7070; J7620; P9047; Q9967; C9113; G0475; J2060; J2370; J2765; J3420; J3490; J7030; J7040; J7050; P9016